=== PATIENT | male | born 1995 | race Caucasian/White ===

== ENCOUNTER 2022-02-04 09:26 | Outpatient (CLI) | payer OTHER, SELFPAY ==
--- NOTE | ~2022-02-04 | XR_ITS ---
EXAMINATION: XR chest 2V DATE: 02/04/2022 09:48 INDICATION: Malignant neoplasm of descended right testis. TECHNIQUE: Frontal and lateral views of the chest were obtained. COMPARISON: None. FINDINGS: There is no pneumonia, pleural effusion, or pneumothorax. The heart size is normal. IMPRESSION: 1. No evidence of metastatic disease. Reviewed, dictated and finalized at location B.
== END 2022-02-04 09:27 | disposition home or self-care (01) ==
PROVIDERS: Visit Provider Urology
DX: C62.11 Malignant neoplasm of descended right testis (principal)
CPT/HCPCS: 71046